=== PATIENT | female | born 1950 | race Caucasian/White ===

== ENCOUNTER 2016-07-22 16:12 | Emergency (ER) | payer MEDICARE ==
--- NOTE | ~2016-07-22 | CR181 ---
[facility]. [facility] A Service of [facility] & [facility] RADIOLOGY TEXT RESULTS PATIENT: AMY HINOJOSA LOCATION: SED : 46 UNIT #: [id number] AGE: [address]: Yasir De Anda MD SEX: F ORDER DR: [id number] [place] [id number] E MR#: [id number] Acc #: [id number] NAME: AMY HINOJOSA : 1950 SEX: F STUDY DATE/TIME: 07/22/2016 16:36 UNIT: SED ROOM: STUDY DESCRIPTION: CR Lumbar Spine 2 or 3 Views Attending Physician: Yasir De Anda M.D. Ordering Physician: Yasir De Anda M.D. Primary Care Physician: Temi Del Angel M.D. MEDICAL IMAGING REPORT This report is preliminary unless electronic signature is present. EXAM Lumbar spine INDICATIONS Low back pain status post fall. Hit a picnic table. FINDINGS 3 views of the lumbar spine without comparison. There is no acute fracture or subluxation. Vertebral body height and alignment is within normal limits. Patient has degenerative disc changes at L1-2, L2-3, and L3-4. This consists of disc space narrowing and osteophyte formation. There is some facet arthropathy in the lower lumbar spine. Sacroiliac joints are normal. IMPRESSION No acute findings. Degenerative changes in the lumbar spine. Dictated by... Gabino Strong M.D. THIS IS AN ELECTRONICALLY VERIFIED REPORT Gabino Strong M.D. at 07/23/2016 1:18 PM KE/sharyn TD: 07/22/2016 18:59 JOB #: [id number] MEDICAL IMAGING REPORT Page 1 of 1
--- NOTE | ~2016-07-22 | CT52 ---
[facility] A Service of [facility] RADIOLOGY TEXT RESULTS PATIENT: AMY HINOJOSA LOCATION: SED : 46 UNIT #: [id number] AGE: [address]: Yasir De Anda MD SEX: F ORDER DR: [id number] [place] [address] [id number] E MR#: [id number] Acc #: [id number] NAME: AMY HINOJOSA : 1950 SEX: F STUDY DATE/TIME: 07/22/2016 16:34 UNIT: SED ROOM: STUDY DESCRIPTION: CT Cervical Spine Wo Cont Attending Physician: Yasir De Anda M.D. Ordering Physician: Yasir De Anda M.D. Primary Care Physician: Temi Del Angel M.D. MEDICAL IMAGING REPORT This report is preliminary unless electronic signature is present. EXAM CT of the cervical spine HISTORY Fell from picnic table at 12:30 today, with dizziness and neck pain. TECHNIQUE Axial imaging of the cervical spine was performed with multiplanar reconstructions. FINDINGS There is mild straightening of the normal cervical lordotic curve. There are sclerosis and cystic degenerative changes at the atlantoaxial joint. No fractures are identified. Disc space and vertebral body height is maintained throughout. The posterior elements are unremarkable. The patient does have underlying emphysematous and interstitial lung disease in the apices. CONCLUSION 1. No acute findings in the cervical spine; no evidence of fracture or subluxation. 2. 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 3. Emphysematous lung disease. Dictated by... Juan Luis Grigsby M.D. THIS IS AN ELECTRONICALLY VERIFIED REPORT Juan Luis Grigsby M.D. at 07/23/2016 7:14 AM CECELIA/azul [facility] A Service of [facility] RADIOLOGY TEXT RESULTS PATIENT: AMY HINOJOSA LOCATION: SED : 46 UNIT #: [id number] AGE: [address]: Yasir De Anda MD SEX: F ORDER DR: TD: 07/22/2016 18:02 JOB #: [id number] MEDICAL IMAGING REPORT Page 1 of 1
--- NOTE | ~2016-07-22 | CT71 ---
[facility] A Service [facility] RADIOLOGY TEXT RESULTS PATIENT: AMY HINOJOSA LOCATION: SED : 46 UNIT #: [id number] AGE: [address]: Yasir De Anda MD SEX: F ORDER DR: [id number] [place] [address] [id number] E MR#: [id number] Acc #: [id number] NAME: AMY HINOJOSA : 1950 SEX: F STUDY DATE/TIME: 07/22/2016 16:28 UNIT: SED ROOM: STUDY DESCRIPTION: CT Head Wo Contrast Attending Physician: Yasir De Anda M.D. Ordering Physician: Yasir De Anda M.D. Primary Care Physician: Temi Del Angel M.D. MEDICAL IMAGING REPORT This report is preliminary unless electronic signature is present. EXAM CT brain without contrast media. HISTORY SUPPLIED Fell backwards and hit back of head at 12:30 p.m. today, dizzy and off balance, fell from picnic table. TECHNIQUE Axial imaging of the brain was performed without contrast media. Bone and soft tissue windows are reviewed and compared directly with the patient's most recent scan of September 2009. This CT exam was performed with one or more of the following radiation dose reduction techniques: automatic exposure control, adjustment of mA and/or kV according to patient size, and iterative reconstruction. FINDINGS Ventricular size and configuration is normal for the patient's age. There are some subtle areas of low attenuation in the periventricular regions in both hemispheres. No mass lesions, mass effect acute hemorrhage or edema. There is atherosclerotic disease in the vertebral arteries and carotid siphons. No fractures are present. Paranasal sinuses and mastoid air cells are clear. CONCLUSION 1. Atrophy with minimal small vessel deep white matter ischemic changes in the periventricular region. 2. Atherosclerotic disease in the carotid siphons and vertebral arteries. 3. No acute intracranial findings. Dictated by... Juan Luis Grigsby M.D. [facility] A Service of [facility] RADIOLOGY TEXT RESULTS PATIENT: AMY HINOJOSA LOCATION: [facility] : 46 UNIT #: [id number] AGE: [address]: Yasir De Anda MD SEX: F ORDER DR: THIS IS AN ELECTRONICALLY VERIFIED REPORT Juan Luis Grigsby M.D. at 07/23/2016 7:14 AM Vineet TD: 07/22/2016 18:20 JOB #: [id number] MEDICAL IMAGING REPORT Page 1 of 1
[~2016-07-22 16:12] MED LIST: ALBUTEROL17 GM NEB; ALPRAZOLAM PO; ASPIR-TRIN325 MG PO; ASPIRINEC PO; CELEBREX PO; CELEBREX50 MG; CIPRO PO; CLARITIN10 MG PO; CLEOCIN PO; CRESTOR PO; DETROL LA PO; DICYCLOMINE HCL20 MG PO; DOLOBID500 MG PO; EC-NAPROSYN500 MG PO; FLAGYL PO; HUMALOG100 U/M2 SQ; HUMALOG100 U/ML SUBQ; HYDROCHLOROTHIA25 MG PO; INSULIN DETEMIR; KCL PO; KEFLEX PO; LASIX PO; LEVAMIR; LEVAMIR SUBQ; LEVAQUIN PO; LEVIMIR; LISINOPRIL PO; LOPRESSOR PO; LORATADINE PO; LORTAB 10-5001 EACH; LORTAB 10/500 T1 TAB PO; LORTAB 7.5-5001 TAB PO; LYRICA PO; METFORMIN PO; METOPROLOL SUCC25 MG PO; METRONIDAZOLE PO; MS CONTIN PO; NEURONTIN PO; NEURONTIN300 MG PO; NORVASC PO; NOVOLOG MIX 70/10 ML INJ; NOVOLOG7030; OPANA10 MG PO; PAXIL PO; PAXIL40 MG PO; PERCOCET PO; PERCOCET10 PO; PHENERGAN SUPP25 MG PR; PLAVIX PO; PLETAL50 MG PO; POLYGESIC 5/5001 CAP PO; PRAVACHOL20 MG PO; REQUIP4 MG PO; SPIRIVA18 MCG INH; SYNTHROID PO; SYNTHROID75 MCG PO; VICODIN 5/500 T1 TAB PO; VOLTAREN50 MG PO; ZESTORETIC 10/11 TAB PO; ZOCOR PO; ZOFRAN PO
== END 2016-07-22 17:23 | disposition home or self-care (01) ==
LOC: SED 16:12
DX: S09.90XA Unspecified injury of head, initial encounter (principal); S16.1XXA Strain of muscle, fascia and tendon at neck level, initial encounter; S39.012A Strain of muscle, fascia and tendon of lower back, initial encounter; I25.10 Atherosclerotic heart disease of native coronary artery without angina pectoris; I11.0 Hypertensive heart disease with heart failure; I50.9 Heart failure, unspecified; F17.200 Nicotine dependence, unspecified, uncomplicated; Z90.49 Acquired absence of other specified parts of digestive tract; Z90.710 Acquired absence of both cervix and uterus; Z79.01 Long term (current) use of anticoagulants; Z79.899 Other long term (current) drug therapy; Z79.4 Long term (current) use of insulin; W01.0XXA Fall on same level from slipping, tripping and stumbling without subsequent striking against object, initial encounter; Y92.830 Public park as the place of occurrence of the external cause
CPT/HCPCS: 70450; 72100; 72125; 99284